=== PATIENT | male | born 1980 | race African-American/Black ===

== ENCOUNTER 2024-07-11 03:09 | Emergency (ER) | payer SELFPAY ==
[~2024-07-11] VITALS: Ht 170.2 cm; Wt 81.6 kg
[2024-07-11] MEDS ORDERED: METH4TAB3 PO (03:43)
[2024-07-11] MEDS ORDERED: ALBU18HF2 INH (03:43)
[2024-07-11] MEDS ORDERED: BENZ-13 PO (03:43)
[2024-07-11] MEDS ORDERED: AMOX-430 PO (03:43)
[2024-07-11] MEDS ORDERED: IPRA42SP NS (03:43)
[2024-07-11] MEDS ORDERED: predniSONE 20 MG TABLET ONE (03:49)
[2024-07-11] MEDS ORDERED: BENZONATATE 100 MG CAPSULE ONE (03:49)
[2024-07-11] MEDS: predniSONE 20 MG TABLET PO ONE (03:57)
[2024-07-11] MEDS: BENZONATATE 100 MG CAPSULE PO ONE (03:57)
[2024-07-11 03:58] VITALS: TEMP 98.3
[2024-07-11] MEDS: ACETAMINOPHEN 500 MG TABLET PO ONE (03:58)
[2024-07-11 04:22] VITALS: BP 150/90; O2SAT 97
== END 2024-07-11 04:29 | disposition home or self-care (01) ==
LOC: ER 03:17
DX: J06.9 Acute upper respiratory infection, unspecified (principal); H66.92 Otitis media, unspecified, left ear; R03.0 Elevated blood-pressure reading, without diagnosis of hypertension; J45.909 Unspecified asthma, uncomplicated; F17.200 Nicotine dependence, unspecified, uncomplicated
CPT/HCPCS: 99284; J7512; A4606; A4663; A9150